=== PATIENT | male | born 1985 | race Caucasian/White ===

== ENCOUNTER → 2017-06-20 | Emergency (ER) | payer OTHER ==
[~2017-06-20] VITALS: Ht 177.8 cm; Wt 81.6 kg
== END | disposition home or self-care (01) ==
LOC: ER 17:21
DX: R79.89 Other specified abnormal findings of blood chemistry (principal)

== ENCOUNTER 2017-11-28 15:26 | Outpatient (CLI) | payer BC | END 2017-11-28 15:38 | disposition home or self-care (01) | LOC: RAD 15:26 | DX: R06.02 Shortness of breath (principal) ==